=== PATIENT | female | born 1995 | race Two or more races ===

== ENCOUNTER 2020-09-01 15:08 | Outpatient (CLI) | payer OTHER | END 2020-09-01 15:17 | disposition home or self-care (01) | LOC: LAB 15:08 | PROVIDERS: ATTEND General Practice | DX: Z28.82 Immunization not carried out because of caregiver refusal (principal); Z01.84 Encounter for antibody response examination; Z11.59 Encounter for screening for other viral diseases; R74.01 Elevation of levels of liver transaminase levels ==